=== PATIENT | female | born 1965 | race Caucasian/White ===

== ENCOUNTER 2018-06-22 09:44 | Day surgery (SDC) | payer OTHER ==
[~2018-06-22 09:44] MED LIST: FERROCITE PO; MULTI VIT PO; OXYBUTYNIN5 MG PO; TRAZODONE50 MG PO; VITAMIN D PO; ZOLPIDEM5 MG PO; [UNRECOGNIZED DRUG - OTHER] PO
[2018-06-22 10:08] LABS: BARBITURATES NEGATIVE (NEGATIVE); COCAINE NEGATIVE (NEGATIVE); METHADONE NEGATIVE (NEGATIVE); OXCYCODONE NEGATIVE (NEGATIVE); TETRAHYDROCANNABIONOL POSITIVE (NEGATIVE); TRICYLIC ANTIDEPRESSANTS NEGATIVE (NEGATIVE)
[2018-06-22 11:47] VITALS: BP 124/74
== END 2018-06-22 12:05 | disposition home or self-care (01) ==
LOC: ENDO 09:44
PROVIDERS: ATTEND Surgery
DX: Z12.11 Encounter for screening for malignant neoplasm of colon (principal); D12.3 Benign neoplasm of transverse colon; K64.8 Other hemorrhoids; Z86.79 Personal history of other diseases of the circulatory system